=== PATIENT | male | born 1980 | race Caucasian/White ===

== ENCOUNTER 2018-12-03 13:55 | Emergency (ER) | payer OTHER ==
[2018-12-03 14:18] VITALS: BP 141/66
--- NOTE | 2018-12-03 14:57 | UC ---
Dental HPI - HPI Summary HPI Summary: Pt presents with c/o right lower jaw pain that radiates to right ear X 4-5 days. Pt states that he was scheduled to have all of his teeth pulled 2 years ago but did not follow through. Pt has not seen a dentist in the last 2 years. - History of Current Complaint Chief Complaint: UCDentalProblem Stated Complaint: DENTAL,EAR PAIN Time Seen by Provider: 12/03/18 14:54 Hx Obtained From: Patient Onset/Duration: Gradual Onset, Lasting Days, Still Present Severity: Moderate Pain Intensity: 8 Aggravating Factor(s): Heat, Cold, Chewing Related History: Swelling - Allergies/Home Medications Allergies/Adverse Reactions: Allergies Allergy/AdvReac Type Severity Reaction Status Date / Time No Known Allergies Allergy Verified 12/03/18 14:18 Home Medications: Home Medications Ibuprofen TAB* [Motrin TAB* 600 MG] 600 mg PO Q8H PRN 12/03/18 [History Confirmed 12/03/18] PMH/Surg Hx/FS Hx/Imm Hx Previously Healthy: Yes - Surgical History Surgical History: None - Family History Known Family History: Positive: Other - Denies FMH of head or neck injury - Social History Occupation: Employed Full-time Lives: With Family Alcohol Use: None Substance Use Type: None Smoking Status (MU): Heavy Every Day Tobacco Smoker Type: Cigarettes Amount Used/How Often: 1ppd Have You Smoked in the Last Year: No Review of Systems All Other Systems Reviewed And Are Negative: Yes Constitutional: Positive: Negative Skin: Positive: Negative Eyes: Positive: Negative ENT: Positive: Dental Pain Respiratory: Positive: Negative Cardiovascular: Positive: Negative Gastrointestinal: Positive: Negative Genitourinary: Positive: Negative Motor: Positive: Negative Neurovascular: Positive: Negative Musculoskeletal: Positive: Negative Neurological: Positive: Negative Psychological: Positive: Negative Is Patient Immunocompromised?: No Physical Exam Triage Information Reviewed: Yes Appearance: Pain Distress Vital Signs: Initial Vital Signs Temp 98.3 F 12/03/18 14:14 Pulse 83 12/03/18 14:14 Resp 16 12/03/18 14:14 BP 141/66 12/03/18 14:14 Pulse Ox 99 12/03/18 14:14 Vital Signs Reviewed: Yes Eye Exam: Normal ENT Exam: Normal ENT: Positive: Normal ENT inspection Dental: Positive: Percussion Tenderness @, Gross Decay/Caries @, Abscess @ - right lower gum line # 29-30 Neck exam: Normal Respiratory Exam: Normal Respiratory: Positive: No respiratory distress Musculoskeletal Exam: Normal Neurological Exam: Normal Psychological Exam: Normal Skin Exam: Normal Dental Complaint Course/Dx - Course Course Of Treatment: Pt was advised to follow up with dental care provider as soon as possible. - Differential Dx/Diagnosis Differential Diagnosis/Dx: Dental Abscess, Dental Caries Provider Diagnosis: Dental abscess Discharge ED - Sign-Out/Discharge Documenting (check all that apply): Patient Departure All imaging exams completed and their final reports reviewed: No Studies - Discharge Plan Condition: Stable Disposition: HOME Prescriptions: Amoxicillin PO (*) [Amoxicillin 500 MG CAP*] 500 mg PO Q8H #30 cap Patient Education Materials: Dental Abscess (ED) Referrals: Benson Villar MD [Primary Care Provider] - If Needed Additional Instructions: Please follow up with your dental care provider as soon as possible. - Billing Disposition and Condition Condition: STABLE Disposition: Home
== END 2018-12-03 15:04 | disposition home or self-care (01) ==
LOC: UCCORT 13:55
DX: K04.7 Periapical abscess without sinus (principal); F17.210 Nicotine dependence, cigarettes, uncomplicated
CPT/HCPCS: 99212; G0463